=== PATIENT | male | born 1940 | race Caucasian/White ===

== ENCOUNTER 2017-04-19 14:54 | Observation (INO) | payer MEDICARE, BC ==
--- NOTE | 2017-04-19 15:09 | EDM.PDOC ---
ED HPI GENERAL MEDICAL PROBLEM - General Chief Complaint: Neurological Problem Stated Complaint: DIZZY Time Seen by Provider: 04/19/17 15:00 Source of Information: Reports: Patient History Limitations: Reports: No Limitations - History of Present Illness INITIAL COMMENTS - FREE TEXT/NARRATIVE: History of present illness: [76-year-old male presenting with complaints of dizziness. Patient indicates that he started feeling dizzy lives yesterday but it was self-limiting but since it has returned today he has become concerned and would like to be evaluated] Review of systems: As per history of present illness and below otherwise all systems reviewed and negative. Past medical history: As per history of present illness and as reviewed below otherwise noncontributory. Surgical history: As per history of present illness and as reviewed below otherwise noncontributory. Social history: No reported history of drug or alcohol abuse. Family history: As per history of present illness and as reviewed below otherwise noncontributory. Physical exam: HEENT: Atraumatic, normocephalic, pupils reactive, negative for conjunctival pallor or scleral icterus, mucous membranes moist, throat clear, neck supple, nontender, trachea midline. Lungs: Clear to auscultation, breath sounds equal bilaterally, chest nontender. Heart: S1S2, irregular and bradycardic, negative for clicks, rubs, or JVD. Abdomen: Soft, nondistended, nontender. Negative for masses or hepatosplenomegaly. Negative for costovertebral tenderness. Pelvis: Stable nontender. Genitourinary: Deferred. Rectal: Deferred. Extremities: Atraumatic, negative for cords or calf pain. Neurovascular unremarkable. Neuro: Awake, alert, oriented. Cranial nerves II through XII unremarkable. Cerebellum unremarkable. Motor and sensory unremarkable throughout. Exam nonfocal. Patient is noted be bradycardic an EKG as noted below, with goal assessment benign save that is noted in the EKG and subjective complaints of dizziness. EKG shows sinus bradycardia with occasional PVCs Diagnostics: [EKG, CBC, troponin, CMP, chest x-ray] Therapeutics: [Liter fluid] Impression: [Bradycardia] Plan: [Dulce Maria laceration] Definitive disposition and diagnosis as appropriate pending reevaluation and review of above. - Related Data Allergies Allergy/AdvReac Type Severity Reaction Status Date / Time No Known Allergies Allergy Verified 04/19/17 14:59 Home Meds: Home Meds Aspirin 325 mg PO DAILY 11/04/14 [History] Furosemide [Lasix] 20 mg PO DAILY 11/04/14 [History] Lisinopril 2.5 mg PO DAILY 11/04/14 [History] Nitroglycerin [Nitrostat] 0.4 mg SL ASDIRECTED PRN 11/04/14 [History] atorvaSTATin [Lipitor] 40 mg PO DAILY 11/04/14 [History] metFORMIN [Glucophage] 500 mg PO BIDM 11/04/14 [History] Insulin Aspart [Novolog Flexpen] 1 injection SUBCUT BID 10/05/15 [History] Past Medical History HEENT History: Reports: Impaired Vision, Other (See Below) Other HEENT History: wears glasses, has upper denture Cardiovascular History: Reports: High Cholesterol, Hypertension, [place] Respiratory History: Reports: Sleep Apnea Other Respiratory History: uses CPAP Gastrointestinal History: Reports: GERD Genitourinary History: Reports: Other (See Below) Other Genitourinary History: burning sensation in foreskin Musculoskeletal History: Reports: None Neurological History: Reports: None Psychiatric History: Reports: None Endocrine/Metabolic History: Reports: Diabetes, Type II, Obesity/BMI 30+ Hematologic History: Reports: Anemia Immunologic History: Reports: None Oncologic (Cancer) History: Reports: None Dermatologic History: Reports: None - Past Surgical History Head Surgeries/Procedures: Reports: None HEENT Surgical History: Reports: Eye Surgery Cardiovascular Surgical History: Reports: Coronary Artery Bypass GI Surgical History: Reports: Colonoscopy Neurological Surgical History: Reports: None Musculoskeletal Surgical History: Reports: None Dermatological Surgical History: Reports: None Social & Family History - Family History Family Medical History: Noncontributory - Tobacco Use Smoking Status *Q: Never Smoker Second Hand Smoke Exposure: No - Caffeine Use Caffeine Use: Reports: Coffee Caffeine Use Comment: 1.5 - Alcohol Use Days Per Week of Alcohol Use: 0 - Recreational Drug Use Recreational Drug Use: No Drug Use in Last 12 Months: No ED ROS GENERAL - Review of Systems Review Of Systems: See Below (See history of present illness) ED EXAM, GENERAL - Physical Exam Exam: See Below (The history of present illness) Course - Vital Signs Last Recorded V/S: Last Vital Signs Temp 36.6 C 04/19/17 14:59 Pulse 58 L 04/19/17 14:59 Resp 16 04/19/17 14:59 BP 109/63 04/19/17 14:59 Pulse Ox 96 04/19/17 14:59 - Orders/Labs/Meds Orders: Active Orders 24 hr Category Date Time Status Patient Status [ADT] Stat ADT 04/19/17 16:21 Ordered EKG 12 Lead [EKG Documentation Completion] [RC] STAT Care 04/19/17 15:14 Active EKG Documentation Completion [RC] STAT Care 04/19/17 16:18 Active UA W/MICROSCOPIC [URIN] Stat Lab 04/19/17 16:19 Uncollected Sodium Chloride 0.9% [Normal Saline] 1,000 ml Med 04/19/17 15:43 Active IV STAT Medication Orders Sodium Chloride (Normal Saline) 1,000 mls @ 999 mls/hr IV STAT ONE Stop: 04/19/17 16:43 Labs: Laboratory Tests 04/19/17 04/19/17 04/19/17 Range/Units 15:00 15:00 15:00 WBC 8.08 (4.0-11.0) K/uL RBC 4.46 L (4.50-5.90) M/uL Hgb 13.3 (13.0-17.0) g/dL Hct 40.4 (38.0-50.0) % MCV 90.6 (80.0-98.0) fL MCH 29.8 (27.0-32.0) pg MCHC 32.9 (31.0-37.0) g/dL RDW Std Deviation 47.2 (28.0-62.0) fl RDW Coeff of Lotus 14 (11.0-15.0) % Plt Count 178 (150-400) K/uL MPV 10.20 (7.40-12.00) fL Neut % (Auto) 66.7 (48.0-80.0) % Lymph % (Auto) 21.9 (16.0-40.0) % [place] % (Auto) 5.2 (0.0-15.0) % Eos % (Auto) 5.7 (0.0-7.0) % Baso % (Auto) 0.5 (0.0-1.5) % Neut # (Auto) 5.4 (1.4-5.7) K/uL Lymph # (Auto) 1.8 (0.6-2.4) K/uL [place] # (Auto) 0.4 (0.0-0.8) K/uL Eos # (Auto) 0.5 (0.0-0.7) K/uL Baso # (Auto) 0.0 (0.0-0.1) K/uL Nucleated RBC % 0.0 /100WBC Nucleated RBCs # 0 K/uL Sodium 139 (136-146) mmol/L Potassium 4.4 (3.5-5.1) mmol/L Chloride 105 (98-110) mmol/L Carbon Dioxide 24 (21-31) mmol/L BUN 20 (6.0-23.0) mg/dL Creatinine 0.9 (0.6-1.5) mg/dL Est Cr Clr Drug Dosing 77.84 mL/min Estimated GFR (MDRD) > 60.0 ml/min Glucose 105 (60-110) mg/dL Calcium 9.4 (8.8-10.8) mg/dL Total Bilirubin 0.8 (0.1-1.5) mg/dL AST 17 (5-40) IU/L ALT 13 (8-54) IU/L Alkaline Phosphatase 86 (40-150) Troponin I < 0.10 (0.0-0.29) NG/ML Total Protein 6.7 (6.0-8.0) g/dL Albumin 3.8 (3.4-4.8) g/dL Globulin 2.9 (2.0-3.5) g/dL Albumin/Globulin Ratio 1.3 (1.3-2.8) Meds: Medications Generic Name Dose Route Start Last Admin Trade Name Freq PRN Reason Stop Dose Admin Sodium Chloride 1,000 mls @ 999 mls/hr 04/19/17 15:43 Normal Saline IV 04/19/17 16:43 STAT ONE Departure - Departure Time of Disposition: 16:24 Disposition: Admitted As Inpatient 67 Condition: good Clinical Impression: Bradycardia - Discharge Information Forms: ED Department Discharge - My Orders Last 24 Hours: My Active Orders 04/19/17 15:14 EKG 12 Lead [EKG Documentation Completion] [RC] STAT 04/19/17 15:43 Sodium Chloride 0.9% [Normal Saline] 1,000 ml IV STAT 04/19/17 16:18 EKG Documentation Completion [RC] STAT 04/19/17 16:19 UA W/MICROSCOPIC [URIN] Stat 04/19/17 16:21 Patient Status [ADT] Stat - Assessment/Plan Last 24 Hours: My Active Orders 04/19/17 15:14 EKG 12 Lead [EKG Documentation Completion] [RC] STAT 04/19/17 15:43 Sodium Chloride 0.9% [Normal Saline] 1,000 ml IV STAT 04/19/17 16:18 EKG Documentation Completion [RC] STAT 04/19/17 16:19 UA W/MICROSCOPIC [URIN] Stat 04/19/17 16:21 Patient Status [ADT] Stat
[2017-04-19 15:43] LABS: CHLORIDE,CL 105 mmol/L (98-110); SODIUM,NA 139 mmol/L (136-146)
[2017-04-19] MEDS ORDERED: Sodium Chloride 0.9% 1,000 ML IV ONE (15:43)
--- NOTE | 2017-04-19 17:47 | PCM.HP ---
H&P History of Present Illness - General Date of Service: 04/19/17 Source of Information: Patient History Limitations: Reports: No Limitations - History of Present Illness Initial Comments - Free Text/Narative: 76 yo male with history CABG in 2010, ID in 1992, HTN, FINA and DM admitted for dizziness and light headedness. He has had 3 episodes of these symptoms over the past 2 days. First episode occurred yesterday morning while he was working in his yard, it lasted 10 minutes then resolved. 2nd episode occurred yesterday evening while he was driving, also lasted about 10 minutes. 3rd episode occurred this morning while he was walking around at [facility]. He denies any associated chest pain or significant sob during the episodes. He has been checking his blood sugar and most recently it was 78 before dinner and 120 after dinner. 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 He last saw him 2 weeks ago and all was normal according him. He is scheduled for stress test and echo this upcoming sunday. Patient is still c/o feeling dizzy and lightheaded.[place] it when he walked to bathroom. Denies it at rest. - Related Data Allergies/Adverse Reactions: Allergies Allergy/AdvReac Type Severity Reaction Status Date / Time No Known Allergies Allergy Verified 04/19/17 14:59 Home Medications: Home Meds Aspirin 325 mg PO DAILY 11/04/14 [History] Furosemide [Lasix] 20 mg PO DAILY 11/04/14 [History] Lisinopril 2.5 mg PO DAILY 11/04/14 [History] Nitroglycerin [Nitrostat] 0.4 mg SL Q5M PRN 11/04/14 [History] atorvaSTATin [Lipitor] 40 mg PO BEDTIME 11/04/14 [History] metFORMIN [Glucophage] 500 mg PO BIDM 11/04/14 [History] Insuln Asp Prot/Insulin Aspart [NovoLOG Mix 70-30] 36 unit SUBCUT QAM 04/19/17 [ History] Insuln Asp Prot/Insulin Aspart [NovoLOG Mix 70-30] 48 unit SUBCUT QPM 04/19/17 [ History] Meloxicam 15 mg PO DAILY PRN 04/19/17 [History] Montelukast [Singulair] 10 mg PO BEDTIME 04/19/17 [History] Past Medical History HEENT History: Reports: Impaired Vision, Other (See Below) Other HEENT History: wears glasses, has upper denture Cardiovascular History: Reports: High Cholesterol, Hypertension, [place] Respiratory History: Reports: Sleep Apnea Other Respiratory History: uses CPAP Gastrointestinal History: Reports: GERD Genitourinary History: Reports: Other (See Below) Other Genitourinary History: burning sensation in foreskin Musculoskeletal History: Reports: None Neurological History: Reports: None Psychiatric History: Reports: None Endocrine/Metabolic History: Reports: Diabetes, Type II, Obesity/BMI 30+ Hematologic History: Reports: Anemia Immunologic History: Reports: None Oncologic (Cancer) History: Reports: None Dermatologic History: Reports: None - Past Surgical History Head Surgeries/Procedures: Reports: None HEENT Surgical History: Reports: Eye Surgery Cardiovascular Surgical History: Reports: Coronary Artery Bypass GI Surgical History: Reports: Colonoscopy Neurological Surgical History: Reports: None Musculoskeletal Surgical History: Reports: None Dermatological Surgical History: Reports: None Social & Family History - Family History Family Medical History: Noncontributory - Tobacco Use Smoking Status *Q: Never Smoker Second Hand Smoke Exposure: No - Caffeine Use Caffeine Use: Reports: Coffee Caffeine Use Comment: 1.5 - Alcohol Use Days Per Week of Alcohol Use: 0 - Recreational Drug Use Recreational Drug Use: No Drug Use in Last 12 Months: No H&P Review of Systems - Review of Systems: Review Of Systems: See Below General: Reports: No Symptoms HEENT: Reports: No Symptoms Pulmonary: Reports: No Symptoms Cardiovascular: Reports: Lightheadedness. Denies: Chest Pain, Palpitations, Dyspnea on Exertion, Orthopnea, PND, Edema Gastrointestinal: Reports: No Symptoms Genitourinary: Reports: No Symptoms Musculoskeletal: Reports: No Symptoms Skin: Reports: No Symptoms Psychiatric: Reports: No Symptoms Neurological: Reports: Dizziness Hematologic/Lymphatic: Reports: No Symptoms Immunologic: Reports: No Symptoms Exam - Exam Exam: See Below - Vital Signs Vital Signs: Last Vital Signs Temp 36.6 C 04/19/17 14:59 Pulse 55 L 04/19/17 16:40 Resp 18 04/19/17 16:40 BP 107/62 04/19/17 16:40 Pulse Ox 95 04/19/17 16:40 Weight: 107.6 kg - Exam General: Alert, Oriented, 4 HEENT: PERRLA, Hearing Intact, Mucosa Moist & [place], Nares Patent, Normal Nasal Septum, Posterior Pharynx Clear, Conjunctiva Clear, EOMI, EACs Clear, TMs Clear Neck: Supple, Trachea Midline, 2 Lungs: Clear to Auscultation, Normal Respiratory Effort Cardiovascular: Bradycardia, Other (scattered crackles in left lower lung) Abdomen: Normal Bowel Sounds, Soft (Male) Exam: No Hernia, Normal Inspection, Normal Prostate, Circumcised Rectal (Males) Exam: Normal Exam, Normal Rectal Tone, Prostate Normal Back Exam: Normal Inspection, Full Range of Motion, NT Extremities: 3, Normal Inspection, 10 Skin: Warm, Dry, Intact Neurological: Cranial Nerves Intact, Reflexes Equal Bilateral Neuro Extensive - Mental Status: Alert, Oriented x3, Normal Mood/Affect, Normal Cognition Neuro Extensive - Motor, Sensory, Reflexes: CN II-XII Intact, Normal Gait, Normal Reflexes Psychiatric: Alert, Normal Affect, Normal Mood - Patient Data Lab Results last 24 hrs: Laboratory Results - last 24 hr 04/19/17 Range/Units 17:17 POC Glucose 115 H (60-110) mg/dL Result Diagrams: 04/19/17 15:00 04/19/17 15:00 *Q Meaningful Use (ADM) - VTE *Q VTE Criteria *Q: - Stroke *Q Stroke Criteria *Q: - AMI *Q AMI Criteria *Q: Problem List Initiated/Reviewed/Updated: Yes Orders Last 24hrs: Active Orders 24 hr Category Date Time Status [employer] Diet [DIET] Diet 04/19/17 Breakfast Active Insulin Aspart [NovoLOG] Med 04/20/17 07:30 Active See Protocol SUBCUT TIDAC Medication Orders Insulin Aspart (Novolog) 0 unit SUBCUT TIDAC MARNIE PRN Reason: Protocol Assessment/Plan Comment:: 6 yo male with history CABG in 2010, ID in 1992, HTN, FINA and DM admitted for dizziness and light headedness. EKG showed Bradycardia. Troponin Negative. Labs WNL. still complaining of dizziness. 1. Dizziness: Orthostatic Vital Signs. Telemetry. Morning labs. 2. Bradycardia: Telemetry. Obtain records from [place]. Consult Cardio if no improvement overnight 3. Hypotension: Hold BP meds for now and continue to monitor. 4. FINA: resume home CPAP at bedtime 5. DM: hold Metformin. resume home insulin dose. blood glucose TIDAC. 6. DVT prophylaxis: Lovenox
[2017-04-19] MEDS ORDERED: Insuln Aspart Prot/Insulin Aspart 100 Units/ML 3 ML FlexPen SUBCUT SCH (18:00)
[2017-04-19] MEDS ORDERED: Acetaminophen 325 MG Tab PO PRN (18:46)
[2017-04-19] MEDS ORDERED: atorvaSTATin 40 MG Tab PO SCH (21:00)
[2017-04-19] MEDS ORDERED: Montelukast 10 MG Tab PO SCH (21:00)
[2017-04-20 04:50] LABS: CHLORIDE,CL 108 mmol/L (98-110); SODIUM,NA 141 mmol/L (136-146)
[2017-04-20] MEDS ORDERED: Insulin Aspart 100 Units/ML 3 ML Pen SUBCUT SCH (07:30)
[2017-04-20] MEDS ORDERED: Insuln Aspart Prot/Insulin Aspart 100 Units/ML 3 ML FlexPen SUBCUT SCH (09:00)
[2017-04-20] MEDS ORDERED: Lisinopril 5 MG Tab PO SCH (09:00)
[2017-04-20] MEDS ORDERED: Furosemide 20 MG Tab PO SCH (09:00)
[2017-04-20] MEDS ORDERED: Aspirin 325 MG Tab PO SCH (09:00)
[2017-04-20] MEDS ORDERED: Enoxaparin 40 MG/0.4 ML Syringe SUBCUT SCH (09:00)
[2017-04-20 11:53] VITALS: BP 115/54
--- NOTE | 2017-04-20 13:06 | CR ---
EXAM DATE: 04/19/17 PATIENT'S AGE: 76 Patient: DOTTIE AVILA Facility: [place], [place] Site . Site : 1940 Study: XRay Chest [id number]/25/2017 11:02:49 PM Ordering Physician: Beatrice Daniel Final Report: INDICATION: Bradycardia TECHNIQUE: Chest 1 view. COMPARISON: None FINDINGS: Cardiovascular and mediastinum: Borderline cardiomegaly. Mediastinum is within normal limits. Sternotomy wires noted. Lungs and pleural space: Lungs are clear. No sign of infiltrate or mass. No sign of pleural effusion. No pneumothorax. Bones and soft tissues: No significant findings. IMPRESSION: Unremarkable chest. Dictated by Jeb Jacob MD @ 04/19/2017 11:48:55 PM Dictated by: Jeb Jacob MD @ 04/19/2017 23:48:58 (Electronic Signature) Report Signed by Proxy. RAMON
--- NOTE | 2017-04-20 15:11 | PCM.DCSUM1 ---
<Keyana,Damian - Last Filed: 04/20/17 15:36> Discharge Summary - Hospital Course Free Text/Narrative:: Patient with history of 5 vessel bypass in 2010 was admitted for dizziness and lightheadedness with ambulation. 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 He was given bolus of fluids and transferred to the floor for monitoring. He did not show signs of volume depletion therefore fluids were discontinued. Orthostatic vitals were checked which were also not suggestive of volume depletion. Patients dizziness and lightheadedness continued. 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 His dizziness and lightheadedness seemed to correlate with when his HR was in the 40's. He seemed to be okay when his heart rate was in the 60's. We discussed the case with cardiology who reviewed the EKG and Telemetry and recommenced the patient be transferred for further evaluation as he may need a pacemaker. The patient sees Dr. Palma at [facility] and has appointment with him April 26 and has stress test scheduled that day. Therefore we decide to contact [facility] ED and Dr. Capps accepted the patient. I informed the patient and he agreed to transfer. - Discharge Data Discharge Date: 04/20/17 Discharge Disposition: DC/Tfer to Acute Hospital 02 Condition: Fair - Patient Summary/Data Consults: Consultations 04/19/17 20:06 PT Evaluation and Treatment [CONS] Routine - Discharge Plan Home Medications: Home Meds Aspirin 325 mg PO DAILY 11/04/14 [History] Furosemide [Lasix] 20 mg PO DAILY 11/04/14 [History] Lisinopril 2.5 mg PO DAILY 11/04/14 [History] Nitroglycerin [Nitrostat] 0.4 mg SL Q5M PRN 11/04/14 [History] atorvaSTATin [Lipitor] 40 mg PO BEDTIME 11/04/14 [History] metFORMIN [Glucophage] 500 mg PO BIDM 11/04/14 [History] Insuln Asp Prot/Insulin Aspart [NovoLOG Mix 70-30] 36 unit SUBCUT QAM 04/19/17 [ History] Insuln Asp Prot/Insulin Aspart [NovoLOG Mix 70-30] 48 unit SUBCUT QPM 04/19/17 [ History] Meloxicam 15 mg PO DAILY PRN 04/19/17 [History] Montelukast [Singulair] 10 mg PO BEDTIME 04/19/17 [History] Referrals: Fili Smyth MD [Primary Care Provider] - - Patient Data Vitals - Most Recent: Last Vital Signs Temp 36.4 C 04/20/17 11:52 Pulse 53 L 04/20/17 11:52 Resp 20 04/20/17 11:52 BP 115/54 L 04/20/17 11:52 Pulse Ox 95 04/20/17 11:52 Orthostatic Blood Pressure [ 103/55 Standing] Orthostatic Blood Pressure [ 108/63 Sitting] Orthostatic Blood Pressure [ 113/59 Supine] Weight - Most Recent: 107.6 kg I&O - Last 24 hours: Intake & Output 04/20/17 04/20/17 04/20/17 06:59 14:59 22:59 Intake Total 300 Output Total 675 Balance -375 Lab Results - Last 24 hrs: Laboratory Results - last 24 hr 04/19/17 04/19/17 04/19/17 Range/Units 17:17 18:45 20:55 WBC (4.0-11.0) K/uL RBC (4.50-5.90) M/uL Hgb (13.0-17.0) g/dL Hct (38.0-50.0) % MCV (80.0-98.0) fL MCH (27.0-32.0) pg MCHC (31.0-37.0) g/dL RDW Std Deviation (28.0-62.0) fl RDW Coeff of Lotus (11.0-15.0) % Plt Count (150-400) K/uL MPV (7.40-12.00) fL Neut % (Auto) (48.0-80.0) % Lymph % (Auto) (16.0-40.0) % [place] % (Auto) (0.0-15.0) % Eos % (Auto) (0.0-7.0) % Baso % (Auto) (0.0-1.5) % Neut # (Auto) (1.4-5.7) K/uL Lymph # (Auto) (0.6-2.4) K/uL [place] # (Auto) (0.0-0.8) K/uL Eos # (Auto) (0.0-0.7) K/uL Baso # (Auto) (0.0-0.1) K/uL Nucleated RBC % /100WBC Nucleated RBCs # K/uL Sodium (136-146) mmol/L Potassium (3.5-5.1) mmol/L Chloride (98-110) mmol/L Carbon Dioxide (21-31) mmol/L BUN (6.0-23.0) mg/dL Creatinine (0.6-1.5) mg/dL Est Cr Clr Drug Dosing mL/min Estimated GFR (MDRD) ml/min Glucose (60-110) mg/dL POC Glucose 115 H 135 H (60-110) mg/dL Calcium (8.8-10.8) mg/dL Urine Color YELLOW Urine Appearance CLEAR Urine pH 7.0 (5.0-8.0) Ur Specific [place] 1.010 (1.001-1.035) Urine Protein NEGATIVE (NEGATIVE) mg/dL Urine Glucose (UA) NEGATIVE (NEGATIVE) mg/dL Urine Ketones NEGATIVE (NEGATIVE) mg/dL Urine Occult Blood TRACE-LYSED (NEGATIVE) Urine Nitrite NEGATIVE (NEGATIVE) Urine Bilirubin NEGATIVE (NEGATIVE) Urine Urobilinogen 0.2 (<2.0) EU/dL Ur Leukocyte Esterase NEGATIVE (NEGATIVE) Urine RBC 0-2 (0-2/HPF) Urine WBC RARE (0-5/HPF) Ur Epithelial Cells RARE (NONE-FEW) Urine Bacteria NOT SEEN (NEGATIVE) 04/20/17 04/20/17 04/20/17 Range/Units 04:27 04:27 06:23 WBC 7.34 (4.0-11.0) K/uL RBC 4.26 L (4.50-5.90) M/uL Hgb 12.5 L (13.0-17.0) g/dL Hct 38.4 (38.0-50.0) % MCV 90.1 (80.0-98.0) fL MCH 29.3 (27.0-32.0) pg MCHC 32.6 (31.0-37.0) g/dL RDW Std Deviation 46.9 (28.0-62.0) fl RDW Coeff of [place] 14 (11.0-15.0) % Plt Count 171 (150-400) K/uL MPV 9.70 (7.40-12.00) fL Neut % (Auto) 61.8 (48.0-80.0) % Lymph % (Auto) 22.5 (16.0-40.0) % [place] % (Auto) 6.9 (0.0-15.0) % Eos % (Auto) 8.3 H (0.0-7.0) % Baso % (Auto) 0.5 (0.0-1.5) % Neut # (Auto) 4.5 (1.4-5.7) K/uL Lymph # (Auto) 1.7 (0.6-2.4) K/uL [place] # (Auto) 0.5 (0.0-0.8) K/uL Eos # (Auto) 0.6 (0.0-0.7) K/uL Baso # (Auto) 0.0 (0.0-0.1) K/uL Nucleated RBC % 0.0 /100WBC Nucleated RBCs # 0 K/uL Sodium 141 (136-146) mmol/L Potassium 4.4 (3.5-5.1) mmol/L Chloride 108 (98-110) mmol/L Carbon Dioxide 25 (21-31) mmol/L BUN 19 (6.0-23.0) mg/dL Creatinine 0.8 (0.6-1.5) mg/dL Est Cr Clr Drug Dosing 87.57 mL/min Estimated GFR (MDRD) > 60.0 ml/min Glucose 129 H (60-110) mg/dL POC Glucose 152 H (60-110) mg/dL Calcium 8.8 (8.8-10.8) mg/dL Urine Color Urine Appearance Urine pH (5.0-8.0) Ur Specific [place] (1.001-1.035) Urine Protein (NEGATIVE) mg/dL Urine Glucose (UA) (NEGATIVE) mg/dL Urine Ketones (NEGATIVE) mg/dL Urine Occult Blood (NEGATIVE) Urine Nitrite (NEGATIVE) Urine Bilirubin (NEGATIVE) Urine Urobilinogen (<2.0) EU/dL Ur Leukocyte Esterase (NEGATIVE) Urine RBC (0-2/HPF) Urine WBC (0-5/HPF) Ur Epithelial Cells (NONE-FEW) Urine Bacteria (NEGATIVE) 05/26/17 Range/Units 11:41 WBC (4.0-11.0) K/uL RBC (4.50-5.90) M/uL Hgb (13.0-17.0) g/dL Hct (38.0-50.0) % MCV (80.0-98.0) fL MCH (27.0-32.0) pg MCHC (31.0-37.0) g/dL RDW Std Deviation (28.0-62.0) fl RDW Coeff of [place] (11.0-15.0) % Plt Count (150-400) K/uL MPV (7.40-12.00) fL Neut % (Auto) (48.0-80.0) % Lymph % (Auto) (16.0-40.0) % [place] % (Auto) (0.0-15.0) % Eos % (Auto) (0.0-7.0) % Baso % (Auto) (0.0-1.5) % Neut # (Auto) (1.4-5.7) K/uL Lymph # (Auto) (0.6-2.4) K/uL [place] # (Auto) (0.0-0.8) K/uL Eos # (Auto) (0.0-0.7) K/uL Baso # (Auto) (0.0-0.1) K/uL Nucleated RBC % /100WBC Nucleated RBCs # K/uL Sodium (136-146) mmol/L Potassium (3.5-5.1) mmol/L Chloride (98-110) mmol/L Carbon Dioxide (21-31) mmol/L BUN (6.0-23.0) mg/dL Creatinine (0.6-1.5) mg/dL Est Cr Clr Drug Dosing mL/min Estimated GFR (MDRD) ml/min Glucose (60-110) mg/dL POC Glucose 166 H (60-110) mg/dL Calcium (8.8-10.8) mg/dL Urine Color Urine Appearance Urine pH (5.0-8.0) Ur Specific [place] (1.001-1.035) Urine Protein (NEGATIVE) mg/dL Urine Glucose (UA) (NEGATIVE) mg/dL Urine Ketones (NEGATIVE) mg/dL Urine Occult Blood (NEGATIVE) Urine Nitrite (NEGATIVE) Urine Bilirubin (NEGATIVE) Urine Urobilinogen (<2.0) EU/dL Ur Leukocyte Esterase (NEGATIVE) Urine RBC (0-2/HPF) Urine WBC (0-5/HPF) Ur Epithelial Cells (NONE-FEW) Urine Bacteria (NEGATIVE) Med Orders - Current: Current Medications Acetaminophen (Tylenol) 650 mg PO Q4H PRN PRN Reason: Pain (Mild 1-3)/fever Aspirin (Aspirin) 325 mg PO DAILY [facility] Last Admin: 04/20/17 08:36 Dose: 325 mg Atorvastatin Calcium (Lipitor) 40 mg PO BEDTIME [facility] Last Admin: 04/19/17 20:20 Dose: 40 mg Enoxaparin Sodium (Lovenox) 40 mg SUBCUT DAILY [facility] Last Admin: 04/20/17 08:37 Dose: 40 mg Furosemide (Lasix) 20 mg PO DAILY [facility] Last Admin: 04/20/17 08:36 Dose: 20 mg Insulin Aspart (Novolog Mix 70-30) 36 unit SUBCUT QAM [facility] Last Admin: 04/20/17 09:05 Dose: 36 units Insulin Aspart (Novolog Mix 70-30) 48 unit SUBCUT QPM [facility] Last Admin: 04/19/17 20:22 Dose: Not Given Lisinopril (Prinivil) 2.5 mg PO DAILY [facility] Last Admin: 04/20/17 08:36 Dose: 2.5 mg Montelukast Sodium (Singulair) 10 mg PO BEDTIME [facility] Last Admin: 04/19/17 20:20 Dose: 10 mg Discontinued Medications Sodium Chloride (Normal Saline) 1,000 mls @ 999 mls/hr IV STAT ONE Stop: 04/19/17 16:43 Last Admin: 04/19/17 16:39 Dose: 999 mls/hr Insulin Aspart (Novolog) 0 unit SUBCUT TIDAC [facility] PRN Reason: Protocol *Q Meaningful Use (DIS) - VTE *Q VTE Criteria *Q: - Stroke *Q Stroke Criteria *Q: - AMI *Q AMI Criteria *Q: <Fredy Barron - Last Filed: 04/20/17 19:28> Discharge Summary - Patient Summary/Data Consults: Consultations 04/19/17 20:06 PT Evaluation and Treatment [CONS] Routine - Patient Data Vitals - Most Recent: Last Vital Signs Temp 36.4 C 04/20/17 11:52 Pulse 53 L 04/20/17 11:52 Resp 20 04/20/17 11:52 BP 115/54 L 04/20/17 11:52 Pulse Ox 95 04/20/17 11:52 Orthostatic Blood Pressure [ 103/55 Standing] Orthostatic Blood Pressure [ 108/63 Sitting] Orthostatic Blood Pressure [ 113/59 Supine] I&O - Last 24 hours: Intake & Output 04/20/17 04/20/17 04/20/17 06:59 14:59 22:59 Intake Total 300 Output Total 675 Balance -375 Lab Results - Last 24 hrs: Laboratory Results - last 24 hr 04/19/17 04/19/17 04/20/17 Range/Units 18:45 20:55 04:27 WBC 7.34 (4.0-11.0) K/uL RBC 4.26 L (4.50-5.90) M/uL Hgb 12.5 L (13.0-17.0) g/dL Hct 38.4 (38.0-50.0) % MCV 90.1 (80.0-98.0) fL MCH 29.3 (27.0-32.0) pg MCHC 32.6 (31.0-37.0) g/dL RDW Std Deviation 46.9 (28.0-62.0) fl RDW Coeff of Lotus 14 (11.0-15.0) % Plt Count 171 (150-400) K/uL MPV 9.70 (7.40-12.00) fL Neut % (Auto) 61.8 (48.0-80.0) % Lymph % (Auto) 22.5 (16.0-40.0) % [place] % (Auto) 6.9 (0.0-15.0) % Eos % (Auto) 8.3 H (0.0-7.0) % Baso % (Auto) 0.5 (0.0-1.5) % Neut # (Auto) 4.5 (1.4-5.7) K/uL Lymph # (Auto) 1.7 (0.6-2.4) K/uL [place] # (Auto) 0.5 (0.0-0.8) K/uL Eos # (Auto) 0.6 (0.0-0.7) K/uL Baso # (Auto) 0.0 (0.0-0.1) K/uL Nucleated RBC % 0.0 /100WBC Nucleated RBCs # 0 K/uL Sodium (136-146) mmol/L Potassium (3.5-5.1) mmol/L Chloride (98-110) mmol/L Carbon Dioxide (21-31) mmol/L BUN (6.0-23.0) mg/dL Creatinine (0.6-1.5) mg/dL Est Cr Clr Drug Dosing mL/min Estimated GFR (MDRD) ml/min Glucose (60-110) mg/dL POC Glucose 135 H (60-110) mg/dL Calcium (8.8-10.8) mg/dL Urine Color YELLOW Urine Appearance CLEAR Urine pH 7.0 (5.0-8.0) Ur Specific [place] 1.010 (1.001-1.035) Urine Protein NEGATIVE (NEGATIVE) mg/dL Urine Glucose (UA) NEGATIVE (NEGATIVE) mg/dL Urine Ketones NEGATIVE (NEGATIVE) mg/dL Urine Occult Blood TRACE-LYSED (NEGATIVE) Urine Nitrite NEGATIVE (NEGATIVE) Urine Bilirubin NEGATIVE (NEGATIVE) Urine Urobilinogen 0.2 (<2.0) EU/dL Ur Leukocyte Esterase NEGATIVE (NEGATIVE) Urine RBC 0-2 (0-2/HPF) Urine WBC RARE (0-5/HPF) Ur Epithelial Cells RARE (NONE-FEW) Urine Bacteria NOT SEEN (NEGATIVE) 04/20/17 04/20/17 04/20/17 Range/Units 04:27 06:23 11:41 WBC (4.0-11.0) K/uL RBC (4.50-5.90) M/uL Hgb (13.0-17.0) g/dL Hct (38.0-50.0) % MCV (80.0-98.0) fL MCH (27.0-32.0) pg MCHC (31.0-37.0) g/dL RDW Std Deviation (28.0-62.0) fl RDW Coeff of Lotus (11.0-15.0) % Plt Count (150-400) K/uL MPV (7.40-12.00) fL Neut % (Auto) (48.0-80.0) % Lymph % (Auto) (16.0-40.0) % [place] % (Auto) (0.0-15.0) % Eos % (Auto) (0.0-7.0) % Baso % (Auto) (0.0-1.5) % Neut # (Auto) (1.4-5.7) K/uL Lymph # (Auto) (0.6-2.4) K/uL [place] # (Auto) (0.0-0.8) K/uL Eos # (Auto) (0.0-0.7) K/uL Baso # (Auto) (0.0-0.1) K/uL Nucleated RBC % /100WBC Nucleated RBCs # K/uL Sodium 141 (136-146) mmol/L Potassium 4.4 (3.5-5.1) mmol/L Chloride 108 (98-110) mmol/L Carbon Dioxide 25 (21-31) mmol/L BUN 19 (6.0-23.0) mg/dL Creatinine 0.8 (0.6-1.5) mg/dL Est Cr Clr Drug Dosing 87.57 mL/min Estimated GFR (MDRD) > 60.0 ml/min Glucose 129 H (60-110) mg/dL POC Glucose 152 H 166 H (60-110) mg/dL Calcium 8.8 (8.8-10.8) mg/dL Urine Color Urine Appearance Urine pH (5.0-8.0) Ur Specific [place] (1.001-1.035) Urine Protein (NEGATIVE) mg/dL Urine Glucose (UA) (NEGATIVE) mg/dL Urine Ketones (NEGATIVE) mg/dL Urine Occult Blood (NEGATIVE) Urine Nitrite (NEGATIVE) Urine Bilirubin (NEGATIVE) Urine Urobilinogen (<2.0) EU/dL Ur Leukocyte Esterase (NEGATIVE) Urine RBC (0-2/HPF) Urine WBC (0-5/HPF) Ur Epithelial Cells (NONE-FEW) Urine Bacteria (NEGATIVE) Med Orders - Current: Current Medications Discontinued Medications Acetaminophen (Tylenol) 650 mg PO Q4H PRN PRN Reason: Pain (Mild 1-3)/fever Aspirin (Aspirin) 325 mg PO DAILY [facility] Last Admin: 04/20/17 08:36 Dose: 325 mg Atorvastatin Calcium (Lipitor) 40 mg PO BEDTIME [facility] Last Admin: 04/19/17 20:20 Dose: 40 mg Enoxaparin Sodium (Lovenox) 40 mg SUBCUT DAILY [facility] Last Admin: 04/20/17 08:37 Dose: 40 mg Furosemide (Lasix) 20 mg PO DAILY [facility] Last Admin: 04/20/17 08:36 Dose: 20 mg Sodium Chloride (Normal Saline) 1,000 mls @ 999 mls/hr IV STAT ONE Stop: 04/19/17 16:43 Last Admin: 04/19/17 16:39 Dose: 999 mls/hr Insulin Aspart (Novolog) 0 unit SUBCUT TIDAC [facility] PRN Reason: Protocol Insulin Aspart (Novolog Mix 70-30) 36 unit SUBCUT QAM [facility] Last Admin: 04/20/17 09:05 Dose: 36 units Insulin Aspart (Novolog Mix 70-30) 48 unit SUBCUT QPM [facility] Last Admin: 04/19/17 20:22 Dose: Not Given Lisinopril (Prinivil) 2.5 mg PO DAILY [facility] Last Admin: 04/20/17 08:36 Dose: 2.5 mg Montelukast Sodium (Singulair) 10 mg PO BEDTIME [facility] Last Admin: 04/19/17 20:20 Dose: 10 mg *Q Meaningful Use (DIS) - VTE *Q VTE Criteria *Q: - Stroke *Q Stroke Criteria *Q: - AMI *Q AMI Criteria *Q: - Free Text/Narrative Note: I have examined patient. I have discussed findings with resident. I agree with the assessment and plan outlined in the following resident's note.
== END 2017-04-20 16:27 ==
LOC: MW.ED 14:54 → MW.MS 17:03
PROVIDERS: ADMIT Internal Medicine; ATTEND Internal Medicine
DX: R42 Dizziness and giddiness (principal); R00.1 Bradycardia, unspecified; I95.9 Hypotension, unspecified; G47.33 Obstructive sleep apnea (adult) (pediatric); E11.9 Type 2 diabetes mellitus without complications; I25.2 Old myocardial infarction; I10 Essential (primary) hypertension; E78.00 Pure hypercholesterolemia, unspecified; K21.9 Gastro-esophageal reflux disease without esophagitis; E66.9 Obesity, unspecified; Z99.89 Dependence on other enabling machines and devices; Z79.82 Long term (current) use of aspirin; Z79.4 Long term (current) use of insulin; Z79.84 Long term (current) use of oral hypoglycemic drugs; Z79.899 Other long term (current) drug therapy; Z95.1 Presence of aortocoronary bypass graft; Z98.890 Other specified postprocedural states
CPT/HCPCS: 36415; 71010; 80048; 80053; 81001; 82962; 83735; 84484; 85025; 93005; 97161; 99284; A9270; J1650; J1815; J7040; 96372; 99283; G0378

== ENCOUNTER 2018-03-11 02:27 | Emergency (ER) | payer MEDICARE, BC ==
[2018-03-11] MEDS ORDERED: Morphine 4 MG/ML Syringe IVPUSH ONE (02:49)
--- NOTE | 2018-03-11 02:52 | EDM.PDOC ---
ED HPI GENERAL MEDICAL PROBLEM - General Chief Complaint: Back Pain or Injury Stated Complaint: BACK PAIN Time Seen by Provider: 03/11/18 02:51 Source of Information: Reports: Patient - History of Present Illness INITIAL COMMENTS - FREE TEXT/NARRATIVE: HISTORY AND PHYSICAL: History of present illness: [Patient presents by private vehicle complaint of back pain initially Has a history of back pain recently seen by his primary care provider Dr. Fili Smyth, he has also recently began physical therapy in which she took his first session yesterday he awoke with low back pain from sleep radiating to his left hip, he denied injury or trauma however we have no previous films I did do plain films of his pelvis and lumbar spine no acute process identified compression deformities of L1 and L2. He then began to complain of nausea and groin pain I ended up scanning is abdomen without contrast to look for ureteral stone no such process was identified radiology mentions soft suggestions of a mild diverticulitis however no white count. Patient's pain improved to a 2 out of 10 after Toradol Patient current has no fever nausea vomiting chills sweats no chest pain shortness breath headache dizziness or palpitation no bowel or urine symptoms ] Review of systems: As per history of present illness and below otherwise all systems reviewed and negative. Past medical history: As per history of present illness and as reviewed below otherwise noncontributory. Surgical history: As per history of present illness and as reviewed below otherwise noncontributory. Social history: No reported history of drug or alcohol abuse. Family history: As per history of present illness and as reviewed below otherwise noncontributory. Physical exam: HEENT: Atraumatic, normocephalic, pupils reactive, negative for conjunctival pallor or scleral icterus, mucous membranes moist, throat clear, neck supple, nontender, trachea midline. Lungs: Clear to auscultation, breath sounds equal bilaterally, chest nontender. Heart: S1S2, regular, negative for clicks, rubs, or JVD. Abdomen: Soft, nondistended, nontender. Negative for masses or hepatosplenomegaly. Negative for costovertebral tenderness. Pelvis: Stable nontender. Genitourinary: Deferred. Rectal: Deferred. Extremities: Atraumatic, negative for cords or calf pain. Neurovascular unremarkable. Neuro: Awake, alert, oriented. Cranial nerves II through XII unremarkable. Cerebellum unremarkable. Motor and sensory unremarkable throughout. Exam nonfocal. Diagnostics: [CBC CMP UA troponin lipase INR EKG Chest 1 view ] Therapeutics: [ saline 1 25 mL per hour Morphine 2 mg IV Cipro Tramadol Continue physical therapy ] Impression: [ back pain ] Groin pain resolved possible clinical diverticulitis Definitive disposition and diagnosis as appropriate pending reevaluation and review of above. left hip/lower back Pain Score (Numeric/FACES): 10 - Related Data Allergies Allergy/AdvReac Type Severity Reaction Status Date / Time No Known Allergies Allergy Verified 03/11/18 02:31 Home Meds: Home Meds Lisinopril 2.5 mg PO DAILY 11/04/14 [History] Nitroglycerin [Nitrostat] 0.4 mg SL Q5M PRN 11/04/14 [History] atorvaSTATin [Lipitor] 40 mg PO BEDTIME 11/04/14 [History] metFORMIN [Glucophage] 500 mg PO BIDM 11/04/14 [History] Insuln Asp Prot/Insulin Aspart [NovoLOG Mix 70-30] 36 unit SUBCUT QAM 04/19/17 [ History] Insuln Asp Prot/Insulin Aspart [NovoLOG Mix 70-30] 48 unit SUBCUT QPM 04/19/17 [ History] Aspirin 81 mg PO BEDTIME 03/11/18 [History] Clopidogrel [Plavix] 75 mg PO BEDTIME 03/11/18 [History] Metoprolol Succinate [Toprol XL] 0 mg PO ASDIRECTED 03/11/18 [History] Midodrine 10 mg PO TID 03/11/18 [History] Timolol [Betimol] 0 ml OP ASDIRECTED 03/11/18 [History] Triamterene/Hydrochlorothiazid [Triamterene-HCTZ 37.5-25 MG] 1 each PO ASDIRECTED 03/11/18 [History] True Metrix Lisa-Dme 03/11/18 [History] Past Medical History HEENT History: Reports: Impaired Vision, Other (See Below) Other HEENT History: wears glasses, has upper denture Cardiovascular History: Reports: High Cholesterol, Hypertension, [place], Pacemaker, Stents Respiratory History: Reports: Sleep Apnea Other Respiratory History: uses CPAP Gastrointestinal History: Reports: GERD Genitourinary History: Reports: Other (See Below) Other Genitourinary History: burning sensation in foreskin Musculoskeletal History: Reports: None Neurological History: Reports: None Psychiatric History: Reports: None Endocrine/Metabolic History: Reports: Diabetes, Type II, Obesity/BMI 30+ Hematologic History: Reports: Anemia Immunologic History: Reports: None Oncologic (Cancer) History: Reports: None Dermatologic History: Reports: None - Infectious Disease History Infectious Disease History: Reports: None - Past Surgical History Head Surgeries/Procedures: Reports: None HEENT Surgical History: Reports: Eye Surgery Cardiovascular Surgical History: Reports: Coronary Artery Bypass GI Surgical History: Reports: Colonoscopy Neurological Surgical History: Reports: None Musculoskeletal Surgical History: Reports: None Dermatological Surgical History: Reports: None Social & Family History - Family History Family Medical History: Noncontributory - Tobacco Use Smoking Status *Q: Never Smoker Second Hand Smoke Exposure: No - Caffeine Use Caffeine Use: Reports: Coffee Caffeine Use Comment: 1.5 - Alcohol Use Days Per Week of Alcohol Use: 0 - Recreational Drug Use Recreational Drug Use: No Drug Use in Last 12 Months: No ED ROS GENERAL - Review of Systems Review Of Systems: ROS reveals no pertinent complaints other than HPI. ED EXAM, GENERAL - Physical Exam Exam: See Below Course - Vital Signs Last Recorded V/S: Last Vital Signs Temp 96.3 F 03/11/18 02:31 Pulse 50 L 03/11/18 04:52 Resp 16 03/11/18 04:52 BP 132/65 03/11/18 04:52 Pulse Ox 95 03/11/18 04:52 - Orders/Labs/Meds Orders: Active Orders 24 hr Category Date Time Status EKG Documentation Completion [RC] STAT Care 03/11/18 02:49 Active Abdomen Pelvis wo Cont [CT] Stat Exams 03/11/18 04:48 Taken Chest 1V Frontal [CR] Stat Exams 03/11/18 02:49 Taken Lumbar Spine 2 or 3V [CR] Stat Exams 03/11/18 02:57 Taken Pelvis 1V or 2V [CR] Stat Exams 03/11/18 02:57 Taken UA W/MICROSCOPIC [URIN] Stat Lab 03/11/18 03:55 Ordered Sodium Chloride 0.9% [Normal Saline] 1,000 ml Med 03/11/18 03:00 Active IV STAT Medication Orders Sodium Chloride (Normal Saline) 1,000 mls @ 125 mls/hr IV STAT MARNIE Last Admin: 03/11/18 03:02 Dose: 125 mls/hr Labs: Laboratory Tests 03/11/18 03/11/18 03/11/18 Range/Units 02:55 02:55 02:55 WBC 7.42 (4.0-11.0) K/uL RBC 4.65 (4.50-5.90) M/uL Hgb 13.8 (13.0-17.0) g/dL Hct 41.8 (38.0-50.0) % MCV 89.9 (80.0-98.0) fL MCH 29.7 (27.0-32.0) pg MCHC 33.0 (31.0-37.0) g/dL RDW Std Deviation 46.9 (28.0-62.0) fl RDW Coeff of Lotus 14 (11.0-15.0) % Plt Count 171 (150-400) K/uL MPV 9.70 (7.40-12.00) fL Neut % (Auto) 53.9 (48.0-80.0) % Lymph % (Auto) 25.7 (16.0-40.0) % [place] % (Auto) 10.4 (0.0-15.0) % Eos % (Auto) 9.3 H (0.0-7.0) % Baso % (Auto) 0.7 (0.0-1.5) % Neut # (Auto) 4.0 (1.4-5.7) K/uL Lymph # (Auto) 1.9 (0.6-2.4) K/uL [place] # (Auto) 0.8 (0.0-0.8) K/uL Eos # (Auto) 0.7 (0.0-0.7) K/uL Baso # (Auto) 0.1 (0.0-0.1) K/uL Nucleated RBC % 0.0 /100WBC Nucleated RBCs # 0 K/uL INR 1.01 Sodium 142 (136-148) mmol/L Potassium 4.1 (3.5-5.1) mmol/L Chloride 107 (98-107) mmol/L Carbon Dioxide 28.1 (21.0-32.0) mmol/L BUN 18 (7.0-18.0) mg/dL Creatinine 1.0 (0.8-1.3) mg/dL Est Cr Clr Drug Dosing 68.98 mL/min Estimated GFR (MDRD) > 60.0 ml/min Glucose 127 H (74-106) mg/dL Calcium 8.8 (8.5-10.1) mg/dL Total Bilirubin 0.5 (0.2-1.0) mg/dL AST 15 (15-37) IU/L ALT 19 (14-63) IU/L Alkaline Phosphatase 94 (46-116) U/L Troponin I < 0.050 (0.000-0.056) ng/mL B-Natriuretic Peptide (<100) PG/ML Total Protein 6.9 (6.4-8.2) g/dL Albumin 3.4 (3.4-5.0) g/dL Globulin 3.5 (2.0-3.5) g/dL Albumin/Globulin Ratio 1.0 L (1.3-2.8) Lipase 108 (73-393) U/L Urine Color Urine Appearance Urine pH (5.0-8.0) Ur Specific [place] (1.001-1.035) Urine Protein (NEGATIVE) mg/dL Urine Glucose (UA) (NEGATIVE) mg/dL Urine Ketones (NEGATIVE) mg/dL Urine Occult Blood (NEGATIVE) Urine Nitrite (NEGATIVE) Urine Bilirubin (NEGATIVE) Urine Urobilinogen (<2.0) EU/dL Ur Leukocyte Esterase (NEGATIVE) Urine RBC (0-2/HPF) Urine WBC (0-5/HPF) Ur Epithelial Cells (NONE-FEW) Urine Bacteria (NEGATIVE) 03/11/18 03/11/18 Range/Units 02:55 03:55 WBC (4.0-11.0) K/uL RBC (4.50-5.90) M/uL Hgb (13.0-17.0) g/dL Hct (38.0-50.0) % MCV (80.0-98.0) fL MCH (27.0-32.0) pg MCHC (31.0-37.0) g/dL RDW Std Deviation (28.0-62.0) fl RDW Coeff of Lotus (11.0-15.0) % Plt Count (150-400) K/uL MPV (7.40-12.00) fL Neut % (Auto) (48.0-80.0) % Lymph % (Auto) (16.0-40.0) % [place] % (Auto) (0.0-15.0) % Eos % (Auto) (0.0-7.0) % Baso % (Auto) (0.0-1.5) % Neut # (Auto) (1.4-5.7) K/uL Lymph # (Auto) (0.6-2.4) K/uL [place] # (Auto) (0.0-0.8) K/uL Eos # (Auto) (0.0-0.7) K/uL Baso # (Auto) (0.0-0.1) K/uL Nucleated RBC % /100WBC Nucleated RBCs # K/uL INR Sodium (136-148) mmol/L Potassium (3.5-5.1) mmol/L Chloride (98-107) mmol/L Carbon Dioxide (21.0-32.0) mmol/L BUN (7.0-18.0) mg/dL Creatinine (0.8-1.3) mg/dL Est Cr Clr Drug Dosing mL/min Estimated GFR (MDRD) ml/min Glucose (74-106) mg/dL Calcium (8.5-10.1) mg/dL Total Bilirubin (0.2-1.0) mg/dL AST (15-37) IU/L ALT (14-63) IU/L Alkaline Phosphatase (46-116) U/L Troponin I (0.000-0.056) ng/mL B-Natriuretic Peptide 415 H (<100) PG/ML Total Protein (6.4-8.2) g/dL Albumin (3.4-5.0) g/dL Globulin (2.0-3.5) g/dL Albumin/Globulin Ratio (1.3-2.8) Lipase (73-393) U/L Urine Color YELLOW Urine Appearance CLEAR Urine pH 6.5 (5.0-8.0) Ur Specific [place] 1.025 (1.001-1.035) Urine Protein TRACE (NEGATIVE) mg/dL Urine Glucose (UA) NEGATIVE (NEGATIVE) mg/dL Urine Ketones TRACE H (NEGATIVE) mg/dL Urine Occult Blood NEGATIVE (NEGATIVE) Urine Nitrite NEGATIVE (NEGATIVE) Urine Bilirubin NEGATIVE (NEGATIVE) Urine Urobilinogen 1.0 (<2.0) EU/dL Ur Leukocyte Esterase NEGATIVE (NEGATIVE) Urine RBC 0-2 (0-2/HPF) Urine WBC 2-4 (0-5/HPF) Ur Epithelial Cells RARE (NONE-FEW) Urine Bacteria FEW (NEGATIVE) Meds: Medications Generic Name Dose Route Start Last Admin Trade Name Samara PRN Reason Stop Dose Admin Sodium Chloride 1,000 mls @ 125 mls/hr 03/11/18 03:00 03/11/18 03:02 Normal Saline IV 125 mls/hr STAT MARNIE Administration Discontinued Medications Generic Name Dose Route Start Last Admin Trade Name Freq PRN Reason Stop Dose Admin Ketorolac Tromethamine 30 mg 03/11/18 04:45 03/11/18 04:49 Toradol IVPUSH 03/11/18 04:46 30 mg ONETIME ONE Administration Morphine Sulfate 2 mg 03/11/18 02:49 03/11/18 03:03 Morphine IVPUSH 03/11/18 02:50 2 mg ONETIME ONE Administration Departure - Departure Time of Disposition: 06:28 Disposition: Home, Self-Care 01 Condition: Good Clinical Impression: Back pain, Abdominal pain - Discharge Information Referrals: Fili Smyth MD [Primary Care Provider] - Forms: ED Department Discharge Additional Instructions: The following information is given to patients seen in the emergency department who are being discharged to home. This information is to outline your options for follow-up care. We provide all patients seen in our emergency department with a follow-up referral. The need for follow-up, as well as the timing and circumstances, are variable depending upon the specifics of your emergency department visit. If you don't have a primary care physician on staff, we will provide you with a referral. We always advise you to contact your personal physician following an emergency department visit to inform them of the circumstance of the visit and for follow-up with them and/or the need for any referrals to a consulting specialist. The emergency department will also refer you to a specialist when appropriate. This referral assures that you have the opportunity for follow-up care with a specialist. All of these measure are taken in an effort to provide you with optimal care, which includes your follow-up. Under all circumstances we always encourage you to contact your private physician who remains a resource for coordinating your care. When calling for follow-up care, please make the office aware that this follow-up is from your recent emergency room visit. If for any reason you are refused follow-up, please contact the [facility] emergency department at and asked to speak to the emergency department charge nurse. - My Orders Last 24 Hours: My Active Orders 03/11/18 02:49 EKG Documentation Completion [RC] STAT Chest 1V Frontal [CR] Stat 03/11/18 02:57 Lumbar Spine 2 or 3V [CR] Stat Pelvis 1V or 2V [CR] Stat 03/11/18 03:00 Sodium Chloride 0.9% [Normal Saline] 1,000 ml IV STAT 03/11/18 03:55 UA W/MICROSCOPIC [URIN] Stat 03/11/18 04:48 Abdomen Pelvis wo Cont [CT] Stat - Assessment/Plan Last 24 Hours: My Active Orders 03/11/18 02:49 EKG Documentation Completion [RC] STAT Chest 1V Frontal [CR] Stat 03/11/18 02:57 Lumbar Spine 2 or 3V [CR] Stat Pelvis 1V or 2V [CR] Stat 03/11/18 03:00 Sodium Chloride 0.9% [Normal Saline] 1,000 ml IV STAT 03/11/18 03:55 UA W/MICROSCOPIC [URIN] Stat 03/11/18 04:48 Abdomen Pelvis wo Cont [CT] Stat
[2018-03-11] MEDS ORDERED: Sodium Chloride 0.9% 1,000 ML IV SCH (03:00)
[2018-03-11 03:37] LABS: CHLORIDE,CL 107 mmol/L (98-107); SODIUM,NA 142 mmol/L (136-148)
[2018-03-11] MEDS ORDERED: Ketorolac 30 MG/ML SDV IVPUSH ONE (04:45)
[2018-03-11 06:53] VITALS: BP 122/65
--- NOTE | 2018-03-11 14:21 | CR ---
EXAM DATE: 03/11/18 PATIENT'S AGE: 77 Patient: DOTTIE AVILA Facility: [place], [place] Site . Site : 1940 Study: XRay Chest [id number]/16/2018 3:08:28 AM Ordering Physician: Talita Lane Final Report: INDICATION: CP, Back pain TECHNIQUE: Chest 1 view COMPARISON: April 19, 2017 FINDINGS: Cardiovascular and mediastinum: Stable cardiomegaly. Stable 2 lead ICD. Stable sternotomy changes. Mediastinum is within normal limits. Lungs and pleural space: Mild scarring. No sign of pleural effusion. No pneumothorax. Bones and soft tissues: Degenerative changes. IMPRESSION: No acute cardiopulmonary disease. Dictated by Joe Garay MD @ 03/11/2018 3:23:17 AM Dictated by: Joe Garay MD @ 03/11/2018 03:23:21 (Electronic Signature) Report Signed by Proxy. [facility]
--- NOTE | 2018-03-11 14:22 | CR ---
EXAM DATE: 03/11/18 PATIENT'S AGE: 77 Patient: DOTTIE AVILA Facility: [place], [place] Site . Site : 1940 Study: XRay Spine Lumbar [id number]/16/2018 3:45:05 AM Ordering Physician: Talita Lane Final Report: INDICATION: LBP radiating into L leg pain TECHNIQUE: Lumbar spine 3 view COMPARISON: None FINDINGS: Bones: Age-indeterminate compression deformities of the L1 and L2 vertebral bodies.. Joints: Multi-level degenerative changes. Soft tissues: Cholelithiasis. Atherosclerotic disease IMPRESSION: 1. Age-indeterminate compression deformities of the L1 and L2 vertebral bodies. Recommend comparison with any prior imaging of this region, point tenderness, and clinical presentation. 2. Cholelithiasis. Dictated by Joe Garay MD @ 03/11/2018 3:55:41 AM Dictated by: Joe Garay MD @ 03/11/2018 03:56:08 (Electronic Signature) Report Signed by Proxy. [facility]
--- NOTE | 2018-03-11 14:23 | CR ---
EXAM DATE: 03/11/18 PATIENT'S AGE: 77 Patient: DOTTIE AVILA Facility: [place], [place] Site . Site : 1940 Study: XRay Pelvis [id number]/16/2018 3:45:46 AM Ordering Physician: Talita Lane Final Report: INDICATION: LBP radiating into L leg pain TECHNIQUE: Single AP view of the bony pelvis COMPARISON: None FINDINGS: Bones: No fractures or bone lesions. Joint spaces: Degenerative changes. Soft tissues: Unremarkable. IMPRESSION: No gross evidence for acute bony abnormality on this single AP view of the bony pelvis. Dictated by Joe Garay MD @ 03/11/2018 3:57:09 AM Dictated by: Joe Garay MD @ 03/11/2018 03:57:16 (Electronic Signature) Report Signed by Proxy. [facility]
--- NOTE | 2018-03-11 14:24 | CT ---
EXAM DATE: 03/11/18 PATIENT'S AGE: 77 Patient: DOTTIE AVILA Facility: [place], [place] Site . Site : 1940 Study: CT Abdomen/Pelvis W/O [id number]/16/2018 5:25:34 AM Ordering Physician: Talita Lane Final Report: INDICATION: General abd pain, L flank pain to leg pain TECHNIQUE: CT abdomen and pelvis without contrast. Evaluation degraded by motion artifact. COMPARISON: None FINDINGS: Lower chest: Scarring/atelectasis. Cardiomegaly. Liver: Unremarkable. Spleen: Unremarkable. Pancreas: Unremarkable. Gallbladder and bile ducts: Cholelithiasis. Kidneys: Nonobstructive intrarenal calculi throughout the left kidney. Bilateral peripelvic cysts.. Adrenal glands: Unremarkable. GI tract: Questionable mild pericolonic stranding along the sigmoid colon. Colonic diverticulosis.. Appendix is normal. Vascular structures: Atherosclerotic disease. Lymph nodes: Unremarkable. Miscellaneous: Unremarkable. No free air or significant free fluid. Pelvic Organs: Unremarkable. Bones: Degenerative changes. IMPRESSION: 1. Possible mild uncomplicated acute diverticulitis along the sigmoid colon. 2. Nonobstructive intrarenal calculi throughout the left kidney 3. Cholelithiasis Dictated by Joe Garay MD @ 03/11/2018 6:01:37 AM Please note that all CT scans at this facility use dose modulation, iterative reconstruction, and/or weight-based dosing when appropriate to reduce radiation dose to as low as reasonably achievable. Dictated by: Joe Garay MD @ 03/11/2018 06:01:44 (Electronic Signature) Report Signed by Proxy. [facility]
== END 2018-03-11 06:40 | disposition home or self-care (01) ==
LOC: MW.ED 02:27
DX: M54.5 Low back pain (principal); R10.30 Lower abdominal pain, unspecified; E78.00 Pure hypercholesterolemia, unspecified; I10 Essential (primary) hypertension; I25.2 Old myocardial infarction; E11.9 Type 2 diabetes mellitus without complications; Z79.899 Other long term (current) drug therapy; Z79.4 Long term (current) use of insulin
CPT/HCPCS: 71045; 72100; 72170; 74176; 80053; 81001; 83690; 83880; 84484; 85025; 85610; 96361; 96374; 96375; 99284; J1885; J2270; J7040; 99283

== ENCOUNTER 2019-06-01 09:12 | Emergency (ER) | payer MEDICARE, BC ==
[2019-06-01 09:25] VITALS: BP 140/74
--- NOTE | 2019-06-01 09:25 | EDM.PDOC ---
ED HPI GENERAL MEDICAL PROBLEM - General Chief Complaint: Back Pain or Injury Stated Complaint: RASH ON BACK AND BACK PAIN Time Seen by Provider: 06/01/19 09:15 Source of Information: Reports: Patient History Limitations: Reports: No Limitations - History of Present Illness INITIAL COMMENTS - FREE TEXT/NARRATIVE: History of present illness: []Patient has had 3 days of left-sided back pain and noted a rash today. Patient states he sat down in a chair to have breakfast this morning and could not get out because the back pain was so severe. He states the pain radiates to his left lower abdomen and feels like he was hit with baseball bat. He denies any blood in his urine, vomiting, fevers, diarrhea and has no other complaints. He has had shingles once in the past on his face. Review of systems: As per history of present illness and below otherwise all systems reviewed and negative. Past medical history: As per history of present illness and as reviewed below otherwise noncontributory. Surgical history: As per history of present illness and as reviewed below otherwise noncontributory. Social history: No reported history of drug or alcohol abuse. Family history: As per history of present illness and as reviewed below otherwise noncontributory. Physical exam: General: Well developed, well nourished in NAD HEENT: Atraumatic, normocephalic, pupils reactive, negative for conjunctival pallor or scleral icterus, mucous membranes moist, throat clear, neck supple, nontender, trachea midline. Lungs: Clear to auscultation, breath sounds equal bilaterally, chest nontender. Heart: S1S2, regular, negative for clicks, rubs, or JVD. Abdomen: NABS, Soft, nondistended, nontender, no rebound or guarding. Negative for masses or hepatosplenomegaly. Negative for costovertebral tenderness. Left lower back with pustular erythematous lesion consistent with shingles rash dating to his left flank Pelvis: Stable nontender. Genitourinary: Deferred. Rectal: Deferred. Extremities: Atraumatic, negative for cords or calf pain. Neurovascular unremarkable. Neuro: Awake, alert, oriented. Cranial nerves II through XII unremarkable. Cerebellum unremarkable. Motor and sensory unremarkable throughout. Exam nonfocal. Skin:warm and dry Diagnostics: None Therapeutics: Tramadol ED Course: Stable Impression: Herpes zoster Prescriptions: Acyclovir, tramadol Plan: Take meds as directed, follow up with your primary care physician, return to ER if symptoms worsen or change. Definitive disposition and diagnosis as appropriate pending reevaluation and review of above. back/abd Pain Score (Numeric/FACES): 10 - Related Data Allergies Allergy/AdvReac Type Severity Reaction Status Date / Time No Known Allergies Allergy Verified 03/11/18 02:31 Home Meds: Home Meds Lisinopril 2.5 mg PO DAILY 11/04/14 [History] Nitroglycerin [Nitrostat] 0.4 mg SL Q5M PRN 11/04/14 [History] atorvaSTATin [Lipitor] 40 mg PO BEDTIME 11/04/14 [History] metFORMIN [Glucophage] 500 mg PO BIDM 11/04/14 [History] Insuln Asp Prot/Insulin Aspart [NovoLOG Mix 70-30] 36 unit SUBCUT QAM 04/19/17 [ History] Insuln Asp Prot/Insulin Aspart [NovoLOG Mix 70-30] 48 unit SUBCUT QPM 04/19/17 [ History] Aspirin 81 mg PO BEDTIME 03/11/18 [History] Clopidogrel [Plavix] 75 mg PO BEDTIME 03/11/18 [History] Metoprolol Succinate [Toprol XL] 0 mg PO ASDIRECTED 03/11/18 [History] Midodrine 10 mg PO TID 03/11/18 [History] Timolol [Betimol] 0 ml OP ASDIRECTED 03/11/18 [History] Triamterene/Hydrochlorothiazid [Triamterene-HCTZ 37.5-25 MG] 1 each PO ASDIRECTED 03/11/18 [History] True Metrix Lisa-Dme 03/11/18 [History] Acyclovir [Zovirax] 800 mg PO 5XDAY #50 tab 06/01/19 [Rx] traMADol HCl [Tramadol HCl] 50 mg PO Q6H PRN #20 tablet 06/01/19 [Rx] Past Medical History HEENT History: Reports: Impaired Vision, Other (See Below) Other HEENT History: wears glasses, has upper denture Cardiovascular History: Reports: Bypass, High Cholesterol, Hypertension, PR, Pacemaker, Stents Respiratory History: Reports: Sleep Apnea Other Respiratory History: uses CPAP Gastrointestinal History: Reports: GERD Genitourinary History: Reports: Other (See Below) Other Genitourinary History: burning sensation in foreskin Musculoskeletal History: Reports: None Neurological History: Reports: None Psychiatric History: Reports: None Endocrine/Metabolic History: Reports: Diabetes, Type II, Obesity/BMI 30+ Hematologic History: Reports: Anemia Immunologic History: Reports: None Oncologic (Cancer) History: Reports: None Dermatologic History: Reports: None - Infectious Disease History Infectious Disease History: Reports: Chicken Pox - Past Surgical History Head Surgeries/Procedures: Reports: None HEENT Surgical History: Reports: Eye Surgery Cardiovascular Surgical History: Reports: Coronary Artery Bypass GI Surgical History: Reports: Colonoscopy Neurological Surgical History: Reports: None Musculoskeletal Surgical History: Reports: None Dermatological Surgical History: Reports: None Social & Family History - Family History Family Medical History: Noncontributory - Tobacco Use Smoking Status *Q: Never Smoker - Caffeine Use Caffeine Use: Reports: Coffee Caffeine Use Comment: 1.5 - Recreational Drug Use Recreational Drug Use: No ED ROS GENERAL - Review of Systems Review Of Systems: See Below ED EXAM, SKIN/RASH Exam: See Below Course - Vital Signs Last Recorded V/S: Last Vital Signs Temp 97.4 F 06/01/19 09:15 Pulse 75 06/01/19 09:15 Resp 20 06/01/19 09:15 BP 140/74 06/01/19 09:15 Pulse Ox 97 06/01/19 09:15 Departure - Departure Time of Disposition: 09:35 Disposition: Home, Self-Care 01 Condition: Good Clinical Impression: Herpes zoster Qualifiers: Herpes zoster complications: without complications Qualified Code(s): B02.9 - Zoster without complications - Discharge Information *PRESCRIPTION DRUG MONITORING PROGRAM REVIEWED*: No *COPY OF PRESCRIPTION DRUG MONITORING REPORT IN PATIENT SHAUNA: No Prescriptions: Acyclovir [Zovirax] 800 mg PO 5XDAY #50 tab traMADol HCl [Tramadol HCl] 50 mg PO Q6H PRN #20 tablet PRN Reason: Pain Instructions: Shingles, [id number] Referrals: PCP,None [Primary Care Provider] - Forms: ED Department Discharge Additional Instructions: The following information is given to patients seen in the emergency department who are being discharged to home. This information is to outline your options for follow-up care. We provide all patients seen in our emergency department with a follow-up referral. The need for follow-up, as well as the timing and circumstances, are variable depending upon the specifics of your emergency department visit. If you don't have a primary care physician on staff, we will provide you with a referral. We always advise you to contact your personal physician following an emergency department visit to inform them of the circumstance of the visit and for follow-up with them and/or the need for any referrals to a consulting specialist. The emergency department will also refer you to a specialist when appropriate. This referral assures that you have the opportunity for follow-up care with a specialist. All of these measure are taken in an effort to provide you with optimal care, which includes your follow-up. Under all circumstances we always encourage you to contact your private physician who remains a resource for coordinating your care. When calling for follow-up care, please make the office aware that this follow-up is from your recent emergency room visit. If for any reason you are refused follow-up, please contact the [facility] Emergency Department at and asked to speak to the emergency department charge nurse. Take meds as directed, follow up with your primary care physician, return to ER if symptoms worsen or change. [facility] [address] [place] [id number]
[2019-06-01] MEDS ORDERED: traMADol 50 MG Tab PO ONE (09:33)
== END 2019-06-01 09:50 | disposition home or self-care (01) ==
LOC: MW.ED 09:12
DX: B02.9 Zoster without complications (principal); E78.00 Pure hypercholesterolemia, unspecified; I10 Essential (primary) hypertension; I25.2 Old myocardial infarction; K21.9 Gastro-esophageal reflux disease without esophagitis; E11.9 Type 2 diabetes mellitus without complications; E66.9 Obesity, unspecified; Z68.32 Body mass index [BMI] 32.0-32.9, adult; Z95.0 Presence of cardiac pacemaker; Z79.899 Other long term (current) drug therapy; Z79.4 Long term (current) use of insulin; Z79.02 Long term (current) use of antithrombotics/antiplatelets
CPT/HCPCS: 99282; A9270

== ENCOUNTER 2022-02-16 09:24 | Emergency (ER) | payer MEDICARE, BC ==
[2022-02-16 10:44] VITALS: BP 118/60; PULSE 79
== END 2022-02-16 10:40 | disposition home or self-care (01) ==
LOC: MW.ED 09:24
DX: R31.9 Hematuria, unspecified (principal)
CPT/HCPCS: 81001; 87086; 99283

== ENCOUNTER 2022-05-31 17:48 | Emergency (ER) | payer MEDICARE, BC ==
[2022-05-31] MEDS ORDERED: fentaNYL 50 MCG/ML SDV IVPUSH ONE (18:35)
[2022-05-31] MEDS ORDERED: Sodium Chloride 0.9% 1,000 ML IV ONE (18:35)
[2022-05-31] MEDS ORDERED: Sodium Chloride 0.9% 10 ML Syringe FLUSH PRN (18:35)
[2022-05-31] MEDS ORDERED: Sodium Chloride 0.9% 2.5 ML Syringe FLUSH PRN (18:35)
[2022-05-31] MEDS ORDERED: Ondansetron 4 MG/2 ML SDV IVPUSH ONE (18:35)
[2022-05-31 20:20] LABS: BLOOD UREA NITROGEN,BUN 14 mg/dL (7.0-18.0); CARBON DIOXIDE,CO2 29.4 mmol/L (21.0-32.0); CHLORIDE,CL 101 mmol/L (98-107); GLUCOSE RANDOM 152 mg/dL (74-106); LIPASE 47 U/L (73-393); POTASSIUM,K 4.4 mmol/L (3.5-5.1); SODIUM,NA 137 mmol/L (136-148)
[2022-05-31 20:24] LABS: ESTIMATED GFR 76 mL/min (>60)
[2022-05-31 23:52] VITALS: BP 107/54; PULSE 67
== END 2022-05-31 21:35 | disposition home or self-care (01) ==
LOC: MW.ED 17:48
DX: N20.0 Calculus of kidney (principal); I10 Essential (primary) hypertension; I25.2 Old myocardial infarction; E78.00 Pure hypercholesterolemia, unspecified; E11.9 Type 2 diabetes mellitus without complications; E66.9 Obesity, unspecified; Z79.82 Long term (current) use of aspirin; Z79.02 Long term (current) use of antithrombotics/antiplatelets; Z79.4 Long term (current) use of insulin; Z79.84 Long term (current) use of oral hypoglycemic drugs; Z79.899 Other long term (current) drug therapy
CPT/HCPCS: 36415; 74176; 80053; 81001; 83605; 83690; 85025; 93005; 96374; 96375; 99284; J2405; J3010; J3490; J7030; 93010

== ENCOUNTER 2022-06-14 14:38 | Emergency (ER) | payer MEDICARE, BC ==
[2022-06-14] MEDS: Ondansetron 4 MG/2 ML SDV IVPUSH ONE (15:35)
[2022-06-14] MEDS: Morphine 4 MG/ML VIAL IVPUSH ONE (15:36)
[2022-06-14] MEDS: Sodium Chloride 0.9% 10 ML Syringe FLUSH PRN (15:42)
[2022-06-14] MEDS: Sodium Chloride 0.9% 2.5 ML Syringe FLUSH PRN (15:42)
[2022-06-14 16:05] LABS: BLOOD UREA NITROGEN,BUN 15 mg/dL (7.0-18.0); CARBON DIOXIDE,CO2 26.6 mmol/L (21.0-32.0); CHLORIDE,CL 100 mmol/L (98-107); GLUCOSE RANDOM 269 mg/dL (74-106); POTASSIUM,K 4.7 mmol/L (3.5-5.1); SODIUM,NA 135 mmol/L (136-148)
[2022-06-14 16:07] LABS: ESTIMATED GFR 76 mL/min (>60)
[2022-06-14] MEDS: Morphine 2 MG/ML SYRINGE IVPUSH ONE (17:05)
[2022-06-14 18:23] VITALS: BP 127/73; PULSE 74
== END 2022-06-14 18:23 | disposition home or self-care (01) ==
LOC: MW.ED 14:38
DX: G89.18 Other acute postprocedural pain (principal); E78.00 Pure hypercholesterolemia, unspecified; I10 Essential (primary) hypertension; K21.9 Gastro-esophageal reflux disease without esophagitis; E11.9 Type 2 diabetes mellitus without complications; I25.2 Old myocardial infarction; E66.9 Obesity, unspecified; Z95.0 Presence of cardiac pacemaker; Z79.899 Other long term (current) drug therapy; Z79.82 Long term (current) use of aspirin; Z79.02 Long term (current) use of antithrombotics/antiplatelets; Z95.1 Presence of aortocoronary bypass graft; Z68.30 Body mass index [BMI] 30.0-30.9, adult
CPT/HCPCS: 36415; 76775; 80053; 85025; 96374; 96375; 96376; 99284; J2270; J2405; J3490

== ENCOUNTER 2022-11-02 18:18 | Emergency (ER) | payer MEDICARE, BC ==
[2022-11-02] MEDS ORDERED: Acetaminophen 325 MG Tab PO ONE (20:03)
[2022-11-02] MEDS ORDERED: Ibuprofen 600 MG Tab PO ONE (20:47)
[2022-11-02 21:03] LABS: INFLUENZA A NAA NEGATIVE (NEGATIVE); INFLUENZA B NAA NEGATIVE (NEGATIVE)
[2022-11-02 23:25] VITALS: BP 121/78; PULSE 87
== END 2022-11-02 21:30 | disposition home or self-care (01) ==
LOC: MW.ED 18:18
DX: U07.1 COVID-19 (principal); E78.00 Pure hypercholesterolemia, unspecified; I10 Essential (primary) hypertension; I25.2 Old myocardial infarction; E11.9 Type 2 diabetes mellitus without complications; E66.9 Obesity, unspecified; Z68.33 Body mass index [BMI] 33.0-33.9, adult; Z79.82 Long term (current) use of aspirin; Z79.02 Long term (current) use of antithrombotics/antiplatelets; Z79.4 Long term (current) use of insulin; Z79.899 Other long term (current) drug therapy
CPT/HCPCS: 71046; 99283; A9270; U0002

== ENCOUNTER 2023-12-06 12:48 | Emergency (ER) | payer MEDICARE, BC ==
[2023-12-06] MEDS ORDERED: Sodium Chloride 0.9% 2.5 ML Syringe FLUSH PRN (13:02)
[2023-12-06] MEDS ORDERED: Sodium Chloride 0.9% 10 ML Syringe FLUSH PRN (13:02)
[2023-12-06 13:28] LABS: BASOPHILS ABSOLUTE AUTO 0.05 K/uL (0.00-0.20); BASOPHILS PERCENT AUTO 0.6 % (0.0-1.0); EOSINOPHILS ABSOLUTE AUTO 0.32 K/uL (0.00-0.45); EOSINOPHILS PERCENT AUTO 3.7 % (0.0-6.0); HEMATOCRIT 39.1 % (42.0-52.0); HEMOGLOBIN 12.7 g/dL (14.0-18.0); IMMATURE GRAN ABSOLUTE AUTO 0.12 K/uL (0.00-0.05); IMMATURE GRAN PERCENT AUTO 1.4 % (0.0-0.4); LYMPHOCYTES PERCENT AUTO 18.6 % (24.0-44.0); MEAN CORPUSCULAR HEMOGLOBIN 28.6 pg (28.0-32.0); MEAN CORPUSCULAR HGB CONC 32.5 g/dL (32.0-36.0); MEAN CORPUSCULAR VOLUME 88.1 fL (83.0-99.0); MEAN PLATELET VOLUME 8.9 fL (9.4-12.4); MONOCYTES ABSOLUTE AUTO 0.43 K/uL (0.00-0.80); NEUTROPHILS ABSOLUTE AUTO 6.09 K/uL (1.80-7.70); NEUTROPHILS PERCENT AUTO 70.7 % (41.0-71.0); PLATELET COUNT,PLT 293 K/uL (150-400); RED BLOOD CELL COUNT 4.44 M/uL (4.52-5.90); WHITE BLOOD CELL COUNT,WBC 8.61 K/uL (3.9-11.3)
[2023-12-06 13:55] LABS: CORONAVIRUS COVID-19 NAA NEGATIVE (NEGATIVE); INFLUENZA A NAA NEGATIVE (NEGATIVE); INFLUENZA B NAA NEGATIVE (NEGATIVE); RESPIRATORY SYNCYTIAL VIR NAA NEGATIVE (NEGATIVE)
[2023-12-06 14:03] LABS: A/G RATIO 0.7 (0.9-1.6); ALBUMIN 2.8 g/dL (3.4-5.0); BILIRUBIN TOTAL 0.6 mg/dL (0.2-1.0); CALCIUM 9.6 mg/dL (8.5-10.1); CARBON DIOXIDE,CO2 33.4 mmol/L (21.0-32.0); EST CRCL DRUG DOSING (CG) 60.66 mL/min; MAGNESIUM 1.5 mg/dL (1.8-2.4); POTASSIUM,K 4.8 mmol/L (3.5-5.1); PROTEIN TOTAL,TP 7.1 g/dL (6.4-8.2); TSH ULTRASENSITIVE 4.29 uIU/mL (0.36-3.74)
[2023-12-06] MEDS ORDERED: Magnesium Sulfate/Water 2 GM in Premix Bag 1 BAG IV STA (14:13)
[2023-12-06 14:24] LABS: T4 FREE 1.11 ng/dL (0.76-1.46)
[2023-12-06 16:23] VITALS: BP 114/65; PULSE 62
== END 2023-12-06 16:23 | disposition home or self-care (01) ==
LOC: MW.ED 12:48
DX: E83.42 Hypomagnesemia (principal); R06.00 Dyspnea, unspecified; J44.9 Chronic obstructive pulmonary disease, unspecified; K21.9 Gastro-esophageal reflux disease without esophagitis; E11.9 Type 2 diabetes mellitus without complications; E66.9 Obesity, unspecified; Z95.1 Presence of aortocoronary bypass graft; Z95.0 Presence of cardiac pacemaker; Z79.899 Other long term (current) drug therapy; Z79.82 Long term (current) use of aspirin; Z79.84 Long term (current) use of oral hypoglycemic drugs; Z20.822 Contact with and (suspected) exposure to COVID-19; Z68.31 Body mass index [BMI] 31.0-31.9, adult
CPT/HCPCS: 0241U; 36415; 70450; 71046; 80053; 82140; 83690; 83735; 83880; 84439; 84443; 84484; 85025; 93970; 96365; 99285; J3475; J3490